=== PATIENT | male | born 1985 ===

== ENCOUNTER 2017-05-12 12:03 | Emergency (ER) | payer OTHER, SELFPAY ==
[2017-05-12 12:06] VITALS: PULSE 81; BMI 23.0
[2017-05-12 12:25] VITALS: BP 115/75; RESP 16; TEMP 98.6; O2SAT 99
--- NOTE | 2017-05-12 12:37 | ED PDOC ---
HPI: Skin/Bite Injury Time Seen by Provider: 05/12/17 12:15 Chief Complaint (Nursing): ENT Problem Chief Complaint (Provider): Rash under nose History Per: Patient History/Exam Limitations: no limitations Onset/Duration Of Symptoms: Days (2) Current Symptoms Are (Timing): Still Present Severity: None Additional Complaint(s): PT states he has had similar in the past. PT states it happens when winter starts and his lips get dry. Pt denies fever/chills. Past Medical History Reviewed: Historical Data, Nursing Documentation, Vital Signs Vital Signs: Last Vital Signs Temp 98.6 F 05/12/17 12:18 Pulse 81 05/12/17 12:18 Resp 16 05/12/17 12:18 BP 115/75 05/12/17 12:18 Pulse Ox 99 05/12/17 12:18 - Medical History PMH: Gastritis, Hiatal Hernia - Surgical History Surgical History: Hernia Repair - Family History Family History: States: No Known Family Hx - Living Arrangements Living Arrangements: With Family - Social History Current smoker - smoking cessation education provided: No Alcohol: Occasional Drugs: Denies - Immunization History Hx Tetanus Toxoid Vaccination: No Hx Influenza Vaccination: No Hx Pneumococcal Vaccination: No - Home Medications Home Medications: Ambulatory Orders Medication Instructions Recorded Famotidine [Pepcid] 20 mg PO BID #28 tab 04/11/16 Bacitracin Ointment [Bacitracin] 30 gm TOP BID #1 tube 05/12/17 Sulfamethoxazole/Trimethoprim 1 each PO BID #20 tablet 05/12/17 [Bactrim 400-80 mg Tablet] - Allergies Allergies/Adverse Reactions: Allergies Allergy/AdvReac Type Severity Reaction Status Date / Time No Known Allergies Allergy Verified 04/11/16 10:52 Review of Systems ROS Statement: Except As Marked, All Systems Reviewed And Found Negative Constitutional: Negative for: Fever, Chills ENT: Positive for: Nose Pain. Negative for: Throat Pain Respiratory: Negative for: Cough Skin: Positive for: Rash Physical Exam - Reviewed Nursing Documentation Reviewed: Yes Vital Signs Reviewed: Yes - Physical Exam Appears: Positive for: Well, Non-toxic, No Acute Distress Head Exam: Positive for: ATRAUMATIC, NORMAL INSPECTION, NORMOCEPHALIC Skin: Positive for: Warm, Rash (Dry erythematous rash under the nose and external area of nostrils. (+) honey colored crusting. ). Negative for: Normal Color Eye Exam: Positive for: Normal appearance ENT: Positive for: Normal ENT Inspection Neck: Positive for: Normal, Painless ROM Cardiovascular/Chest: Positive for: Regular Rate, Rhythm Respiratory: Positive for: CNT, Normal Breath Sounds Gastrointestinal/Abdominal: Positive for: Normal Exam, Bowel Sounds, Soft Back: Positive for: Normal Inspection Extremity: Positive for: Normal ROM Neurologic/Psych: Positive for: Alert, Oriented - ECG O2 Sat by Pulse Oximetry: 99 Medical Decision Making Medical Decision Making: Discussed topical antibiotics for 2-3 days before beginning oral antibiotics. Disposition - Clinical Impression Clinical Impression: Impetigo - Disposition Disposition Time: 12:37 Condition: STABLE Prescriptions: Bacitracin Ointment [Bacitracin] 30 gm TOP BID #1 tube Sulfamethoxazole/Trimethoprim [Bactrim 400-80 mg Tablet] 1 each PO BID #20 tablet Instructions: Impetigo (ED) Forms: [facility] (Kosovan)
== END 2017-05-12 13:10 | disposition home or self-care (01) ==
LOC: H.ER 12:03
DX: L01.00 Impetigo, unspecified (principal)

== ENCOUNTER 2017-06-03 13:23 | Emergency (ER) | payer OTHER ==
[2017-06-03 13:23] VITALS: BMI 23.0
[2017-06-03 14:01] VITALS: BP 121/73; PULSE 94; RESP 16; TEMP 97.6; O2SAT 100
--- NOTE | 2017-06-03 14:10 | ED PDOC ---
HPI: General Adult Time Seen by Provider: 06/03/17 13:45 Chief Complaint (Nursing): Abnormal Skin Integrity Chief Complaint (Provider): Abnormal Skin Integrity History Per: Patient History/Exam Limitations: no limitations Onset/Duration Of Symptoms: Days (x3) Current Symptoms Are (Timing): Still Present Additional Complaint(s): Amadeo Corona is a 31 year old male with no past medical history who presents to the ED complaining of a nasal rash x3 days. Patient was seen in the ED 05/12 for the same rash and was prescribed Bactroban cream and Bactrim. Patient states he completed course of antibiotics and was symptom free on Friday , but symptoms returned on Friday. PMD: Provider TBD Past Medical History Reviewed: Historical Data, Nursing Documentation, Vital Signs Vital Signs: Last Vital Signs Temp 97.6 F 06/03/17 13:40 Pulse 94 H 06/03/17 13:40 Resp 16 06/03/17 13:40 BP 121/73 06/03/17 13:40 Pulse Ox 100 06/03/17 15:40 - Medical History PMH: Gastritis, Hiatal Hernia - Surgical History Surgical History: Hernia Repair Other surgeries: Right foot 2012, nose due to accident - Family History Family History: States: Unknown Family Hx - Social History Ex-Smoker (has not smoked in the last 12 months): Yes Alcohol: Other (Yes) Drugs: Denies - Immunization History Hx Tetanus Toxoid Vaccination: No Hx Influenza Vaccination: No Hx Pneumococcal Vaccination: No - Home Medications Home Medications: Ambulatory Orders Medication Instructions Recorded Famotidine [Pepcid] 20 mg PO BID #28 tab 04/11/16 Bacitracin Ointment [Bacitracin] 30 gm TOP BID #1 tube 05/12/17 Sulfamethoxazole/Trimethoprim 1 each PO BID #20 tablet 05/12/17 [Bactrim 400-80 mg Tablet] Clindamycin Phosphate [Cleocin T] 0.5 gm TP BID #60 gm 06/03/17 Dicloxacillin [Dynapen] 1 tab PO QID #40 cap 06/03/17 - Allergies Allergies/Adverse Reactions: Allergies Allergy/AdvReac Type Severity Reaction Status Date / Time No Known Allergies Allergy Verified 06/03/17 13:40 Review of Systems ROS Statement: Except As Marked, All Systems Reviewed And Found Negative Skin: Positive for: Rash (Nose and upper lip) Physical Exam - Reviewed Nursing Documentation Reviewed: Yes Vital Signs Reviewed: Yes - Physical Exam Appears: Positive for: Well, Non-toxic, No Acute Distress Head Exam: Positive for: ATRAUMATIC, NORMAL INSPECTION, NORMOCEPHALIC Skin: Positive for: Rash (Crusty legions to bilateral nares and upper lip. Mild erythema.) Eye Exam: Positive for: Normal appearance Neurologic/Psych: Positive for: Alert, Oriented - ECG O2 Sat by Pulse Oximetry: 100 (RA) Pulse Ox Interpretation: Normal Medical Decision Making Medical Decision Making: Time: 13:59 Initial Impression: Impetigo Plan: --MRSA Screen --Reevaluation Time: 14:05 Plan: --Upon provider evaluation patient is medically stable, and requires no further treatment in the ED at this time. Patient will be discharged home with Rx for Cleocin T and Dynapen. Counseling was provided and all questions were answered regarding diagnosis and need for follow up with PMD or ED. There is agreement to discharge plan. Return if symptoms persist or worsen. Scribe Attestation: Documented by Robinson Frankel, acting as a scribe for Bob Tobar PA-C Provider Scribe Attestation: All medical record entries made by the Scribe were at my direction and personally dictated by me. I have reviewed the chart and agree that the record accurately reflects my personal performance of the history, physical exam, medical decision making, and the department course for this patient. I have also personally directed, reviewed, and agree with the discharge instructions and disposition. Disposition - Clinical Impression Clinical Impression: Impetigo - Patient ED Disposition Is Patient to be Admitted: No Counseled Patient/Family Regarding: Diagnosis, Need For Followup, Rx Given - Disposition Referrals: [facility] [Outside] Disposition: Routine/Home Disposition Time: 14:05 Condition: FAIR Additional Instructions: RETURN IN 3 DAYS FOR RE-EVALUATION OR F/U WITH YOUR PMD IN 3 DAYS Prescriptions: Clindamycin Phosphate [Cleocin T] 0.5 gm TP BID #60 gm Dicloxacillin [Dynapen] 1 tab PO QID #40 cap Instructions: Impetigo (ED) Forms: [facility] (Swazi)
== END 2017-06-03 15:14 | disposition home or self-care (01) ==
LOC: H.ER 13:23
DX: L01.00 Impetigo, unspecified (principal); Z87.891 Personal history of nicotine dependence

== ENCOUNTER 2017-06-11 17:33 | Emergency (ER) | payer OTHER ==
[2017-06-11 17:33] VITALS: BMI 23.0
[2017-06-11 17:45] VITALS: BP 123/71; PULSE 81; RESP 16; TEMP 98.1; O2SAT 100
--- NOTE | 2017-06-11 17:59 | ED PDOC ---
HPI: Skin/Bite Injury Time Seen by Provider: 06/11/17 17:46 Chief Complaint (Nursing): Abnormal Skin Integrity Chief Complaint (Provider): Abnormal Skin Integrity History Per: Patient History/Exam Limitations: no limitations Onset/Duration Of Symptoms: Days (x1 month) Current Symptoms Are (Timing): Still Present Additional Complaint(s): Amadeo Corona is a 31 year old male who presents to the emergency department with a complaint of right nostril pain associated with rash ongoing for 1 month. Patient was seen in ED and diagnosed with impetigo on 06/03/17 for similar complaints and discharged with Bactrim and bacitracin ointment which did not improve symptoms. PMD: none provided Past Medical History Reviewed: Historical Data, Nursing Documentation, Vital Signs Vital Signs: Last Vital Signs Temp 98.1 F 06/11/17 17:43 Pulse 81 06/11/17 17:43 Resp 16 06/11/17 17:43 BP 123/71 06/11/17 17:43 Pulse Ox 100 06/11/17 18:03 - Medical History PMH: Gastritis, Hiatal Hernia - Surgical History Surgical History: Hernia Repair - Family History Family History: States: Unknown Family Hx - Living Arrangements Living Arrangements: With Family - Social History Current smoker - smoking cessation education provided: No Alcohol: None Drugs: Denies - Immunization History Hx Tetanus Toxoid Vaccination: No Hx Influenza Vaccination: No Hx Pneumococcal Vaccination: No - Home Medications Home Medications: Ambulatory Orders Medication Instructions Recorded Famotidine [Pepcid] 20 mg PO BID #28 tab 04/11/16 Bacitracin Ointment [Bacitracin] 30 gm TOP BID #1 tube 05/12/17 Sulfamethoxazole/Trimethoprim 1 each PO BID #20 tablet 05/12/17 [Bactrim 400-80 mg Tablet] Clindamycin Phosphate [Cleocin T] 0.5 gm TP BID #60 gm 06/03/17 Dicloxacillin [Dynapen] 1 tab PO QID #40 cap 06/03/17 Clindamycin [Cleocin] 300 mg PO BID #14 cap 06/11/17 Mupirocin 2% Cream [Bactroban 30 applic TOP BID #1 tube 06/11/17 Cream] - Allergies Allergies/Adverse Reactions: Allergies Allergy/AdvReac Type Severity Reaction Status Date / Time No Known Allergies Allergy Verified 06/11/17 17:45 Review of Systems ROS Statement: Except As Marked, All Systems Reviewed And Found Negative ENT: Positive for: Nose Pain, Nose Discharge Physical Exam - Reviewed Nursing Documentation Reviewed: Yes Vital Signs Reviewed: Yes - Physical Exam Appears: Positive for: Well, Non-toxic, No Acute Distress Head Exam: Positive for: ATRAUMATIC, NORMAL INSPECTION, NORMOCEPHALIC Skin: Positive for: Warm, Rash (honey colored lesions and scabbing below b/l nares) Eye Exam: Positive for: EOMI, Normal appearance, PERRL ENT: Positive for: Normal ENT Inspection Neck: Positive for: Normal, Painless ROM Cardiovascular/Chest: Positive for: Regular Rate, Rhythm Respiratory: Positive for: CNT, Normal Breath Sounds Gastrointestinal/Abdominal: Positive for: Normal Exam, Bowel Sounds, Soft Back: Positive for: Normal Inspection Extremity: Positive for: Normal ROM Neurologic/Psych: Positive for: Alert, Oriented - ECG O2 Sat by Pulse Oximetry: 100 Disposition - Clinical Impression Clinical Impression: Impetigo - Patient ED Disposition Is Patient to be Admitted: No - Disposition Disposition: Routine/Home Disposition Time: 18:00 Condition: STABLE Prescriptions: Clindamycin [Cleocin] 300 mg PO BID #14 cap Mupirocin 2% Cream [Bactroban Cream] 30 applic TOP BID #1 tube Instructions: Impetigo (ED) Forms: [facility] (Serbian) - POA Present On Arrival: None
== END 2017-06-11 18:14 | disposition home or self-care (01) ==
LOC: H.ER 17:33
DX: L01.00 Impetigo, unspecified (principal)

== ENCOUNTER 2017-12-12 13:59 | Emergency (ER) | payer OTHER, SELFPAY ==
[2017-12-12 14:05] VITALS: BP 130/88; PULSE 99; RESP 16; TEMP 97.5; O2SAT 98; BMI 23.5
--- NOTE | 2017-12-12 15:02 | ED PDOC ---
HPI: Allergic Reaction Time Seen by Provider: 12/12/17 14:59 Chief Complaint (Nursing): Abnormal Skin Integrity Chief Complaint (Provider): Abnormal Skin Integrity History Per: Patient History/Exam Limitations: no limitations Onset/Duration Of Symptoms: Days (x3) Current Symptoms Are (Timing): Still Present Additional Complaint(s): 32 year old male presents to the emergency department complaining of a moderately itchy rash, onset three days ago. He states he noticed a rash to his left arm after gardening outside three days ago, and as of yesterday, noticed the rash had spread to his right arm and neck. Patient denies attempting to use any medications. PMD: none provided Past Medical History Reviewed: Historical Data, Nursing Documentation, Vital Signs Vital Signs: Last Vital Signs Temp 97.5 F L 12/12/17 14:04 Pulse 99 H 12/12/17 14:04 Resp 16 12/12/17 14:04 BP 130/88 12/12/17 14:04 Pulse Ox 98 12/12/17 14:04 - Medical History PMH: Gastritis, Hiatal Hernia - Surgical History Surgical History: Hernia Repair - Family History Family History: States: Unknown Family Hx - Immunization History Hx Tetanus Toxoid Vaccination: No Hx Influenza Vaccination: No Hx Pneumococcal Vaccination: No - Home Medications Home Medications: Ambulatory Orders Medication Instructions Recorded Famotidine [Pepcid] 20 mg PO BID #28 tab 04/11/16 Bacitracin Ointment [Bacitracin] 30 gm TOP BID #1 tube 05/12/17 Sulfamethoxazole/Trimethoprim 1 each PO BID #20 tablet 05/12/17 [Bactrim 400-80 mg Tablet] Clindamycin Phosphate [Cleocin T] 0.5 gm TP BID #60 gm 06/03/17 Dicloxacillin [Dynapen] 1 tab PO QID #40 cap 06/03/17 Clindamycin [Cleocin] 300 mg PO BID #14 cap 06/11/17 Mupirocin 2% Cream [Bactroban 30 applic TOP BID #1 tube 06/11/17 Cream] Polymyxin/Trimethoprim Sulfate 1 drop XX Q6H 10 Days bottle 12/01/17 [Polytrim Ophth Soln] DiphenhydrAMINE [Benadryl] 50 mg PO Q6 PRN #24 cap 12/12/17 Hydrocortisone 0.5% CREAM 0.5 gm TOP BID #1 tube 12/12/17 [Cortizone 0.5% CREAM] - Allergies Allergies/Adverse Reactions: Allergies Allergy/AdvReac Type Severity Reaction Status Date / Time No Known Allergies Allergy Verified 12/01/17 10:56 Review of Systems ROS Statement: Except As Marked, All Systems Reviewed And Found Negative Skin: Positive for: Rash (to bilateral upper extremities and neck; itchy) Physical Exam - Reviewed Nursing Documentation Reviewed: Yes Vital Signs Reviewed: Yes - Physical Exam Appears: Positive for: Non-toxic, No Acute Distress Head Exam: Positive for: ATRAUMATIC, NORMOCEPHALIC Skin: Positive for: Rash (left arm linear array of papular lesions; right arm assorted small lesions; small papular lesions noted at base of neck) Eye Exam: Positive for: Normal appearance Neck: Positive for: Normal, Painless ROM, Supple Cardiovascular/Chest: Positive for: Regular Rate, Rhythm. Negative for: Murmur Respiratory: Positive for: Normal Breath Sounds. Negative for: Accessory Muscle Use, Respiratory Distress Gastrointestinal/Abdominal: Positive for: Normal Exam, Soft. Negative for: Tenderness Back: Positive for: Normal Inspection Extremity: Positive for: Normal ROM Neurologic/Psych: Positive for: Alert, Oriented - ECG O2 Sat by Pulse Oximetry: 98 (RA) Pulse Ox Interpretation: Normal Disposition - Clinical Impression Clinical Impression: Poison rosa dermatitis - Patient ED Disposition Is Patient to be Admitted: No - Disposition Disposition: Routine/Home Disposition Time: 15:10 Condition: FAIR Prescriptions: DiphenhydrAMINE [Benadryl] 50 mg PO Q6 PRN #24 cap PRN Reason: Itching / Pruritus Hydrocortisone 0.5% CREAM [Cortizone 0.5% CREAM] 0.5 gm TOP BID #1 tube Instructions: Poison Rosa Print Language: TAJIK Medical Decision Making Medical Decision Making: Scribe Attestation: Documented by Emilee Jackson, acting as a scribe for Bob Tobar PA-C Provider Scribe Attestation: All medical record entries made by the Scribe were at my direction and personally dictated by me. I have reviewed the chart and agree that the record accurately reflects my personal performance of the history, physical exam, medical decision making, and the department course for this patient. I have also personally directed, reviewed, and agree with the discharge instructions and disposition.
== END 2017-12-12 15:30 | disposition home or self-care (01) ==
LOC: H.ER 13:59
DX: L23.7 Allergic contact dermatitis due to plants, except food (principal)

== ENCOUNTER 2017-12-14 14:54 | Emergency (ER) | payer SELFPAY ==
[2017-12-14 14:54] VITALS: BMI 23.5
[2017-12-14 15:08] VITALS: BP 107/71; PULSE 88; RESP 20; TEMP 97.8; O2SAT 97
--- NOTE | 2017-12-14 15:22 | ED PDOC ---
HPI: Allergic Reaction Time Seen by Provider: 12/14/17 15:10 Chief Complaint (Nursing): Abnormal Skin Integrity Chief Complaint (Provider): poision rosa History Per: Patient History/Exam Limitations: no limitations Onset/Duration Of Symptoms: Days (x5) Current Symptoms Are (Timing): Still Present Additional Complaint(s): 32 year old male presents to the emergency department complaining of worsening poison rosa. Patient states five days ago he was cutting grass and obtained a rash which was later diagnosed in the ED two days ago to be poison rosa. He was discharged home with a cortisone cream and Benadryl, but is back today for worsening symptoms as rash has now spread to both arms, neck and anterior chest. He denies any fever or chills. PMD: [facility] Past Medical History Reviewed: Historical Data, Nursing Documentation, Vital Signs Vital Signs: Last Vital Signs Temp 97.8 F 12/14/17 15:05 Pulse 88 12/14/17 15:05 Resp 20 12/14/17 15:05 BP 107/71 12/14/17 15:05 Pulse Ox 97 12/14/17 15:05 - Medical History PMH: No Chronic Diseases - Surgical History Surgical History: Hernia Repair - Family History Family History: States: No Known Family Hx - Living Arrangements Living Arrangements: With Family - Social History Current smoker - smoking cessation education provided: Yes Alcohol: None Drugs: Cannabis - Home Medications Home Medications: Ambulatory Orders Medication Instructions Recorded Famotidine [Pepcid] 20 mg PO BID #28 tab 04/11/16 Bacitracin Ointment [Bacitracin] 30 gm TOP BID #1 tube 05/12/17 Sulfamethoxazole/Trimethoprim 1 each PO BID #20 tablet 05/12/17 [Bactrim 400-80 mg Tablet] Clindamycin Phosphate [Cleocin T] 0.5 gm TP BID #60 gm 06/03/17 Dicloxacillin [Dynapen] 1 tab PO QID #40 cap 06/03/17 Clindamycin [Cleocin] 300 mg PO BID #14 cap 06/11/17 Mupirocin 2% Cream [Bactroban 30 applic TOP BID #1 tube 06/11/17 Cream] Polymyxin/Trimethoprim Sulfate 1 drop XX Q6H 10 Days bottle 12/01/17 [Polytrim Ophth Soln] DiphenhydrAMINE [Benadryl] 50 mg PO Q6 PRN #24 cap 12/12/17 Hydrocortisone 0.5% CREAM 0.5 gm TOP BID #1 tube 12/12/17 [Cortizone 0.5% CREAM] Diphenhydramine HCl/Zinc Acet 1 gm TP ASDIR PRN #1 packet 12/14/17 [Benadryl Itch Stopping Crm] predniSONE [predniSONE Tab] 10 mg PO ASDIR #43 tab 12/14/17 - Allergies Allergies/Adverse Reactions: Allergies Allergy/AdvReac Type Severity Reaction Status Date / Time No Known Allergies Allergy Verified 12/14/17 15:04 Review of Systems ROS Statement: Except As Marked, All Systems Reviewed And Found Negative Constitutional: Negative for: Fever Skin: Positive for: Rash (poison rosa on bilateral upper extermities and neck) Physical Exam - Reviewed Nursing Documentation Reviewed: Yes Vital Signs Reviewed: Yes - Physical Exam Appears: Positive for: Well, Non-toxic, No Acute Distress Head Exam: Positive for: ATRAUMATIC, NORMAL INSPECTION, NORMOCEPHALIC Skin: Positive for: Rash (scattered raised erythematous lesions and pustules with distribution consistent with poison rosa dermatitis) Eye Exam: Positive for: Normal appearance Cardiovascular/Chest: Positive for: Regular Rate, Rhythm Respiratory: Positive for: Normal Breath Sounds. Negative for: Respiratory Distress Extremity: Positive for: Normal ROM. Negative for: Pedal Edema Neurologic/Psych: Positive for: Alert, Oriented (x3) - ECG O2 Sat by Pulse Oximetry: 97 (RA) Pulse Ox Interpretation: Normal Disposition - Clinical Impression Clinical Impression: Poison rosa dermatitis - Patient ED Disposition Is Patient to be Admitted: No Counseled Patient/Family Regarding: Diagnosis, Need For Followup, Rx Given - Disposition Referrals: [facility] [Outside] Disposition: Routine/Home Disposition Time: 15:30 Condition: STABLE Additional Instructions: TAKE RX MEDS DIRECTED. FOLLOW UP WITH CLINIC IN 2-3 DAYS. Prescriptions: Diphenhydramine HCl/Zinc Acet [Benadryl Itch Stopping Crm] 1 gm TP ASDIR PRN #1 packet PRN Reason: Itching / Pruritus predniSONE [predniSONE Tab] 10 mg PO ASDIR #43 tab Instructions: Poison Rosa Forms: [employer] [facility] (Tristanian) Medical Decision Making Medical Decision Making: Time: 15:18 Initial Impression: 32 year old male with poison rosa dermatitis Initial Plan: --SOLU-Medrol 125mg IM Will d/c with rx prednisone taper and benadryl cream. Patient was referred to clinic for follow up. Scribe Attestation: Documented by Emilee Jackson, acting as a scribe for Brianna Sanchez PA-C. Provider Scribe Attestation: All medical record entries made by the Scribe were at my direction and personally dictated by me. I have reviewed the chart and agree that the record accurately reflects my personal performance of the history, physical exam, medical decision making, and the department course for this patient. I have also personally directed, reviewed, and agree with the discharge instructions and disposition.
== END 2017-12-14 15:40 | disposition home or self-care (01) ==
LOC: H.ER 14:54
DX: L23.7 Allergic contact dermatitis due to plants, except food (principal)
CPT/HCPCS: 96372; 99283; J2930

== ENCOUNTER 2018-05-19 16:57 | Emergency (ER) | payer OTHER, SELFPAY ==
[2018-05-19 16:57] VITALS: BMI 23.5
[2018-05-19 17:09] VITALS: BP 131/79; PULSE 88; RESP 16; TEMP 98.4; O2SAT 97
--- NOTE | 2018-05-19 17:21 | ED PDOC ---
HPI: Skin/Bite Injury Time Seen by Provider: 05/19/18 17:11 Chief Complaint (Nursing): Abnormal Skin Integrity Chief Complaint (Provider): Abnormal Skin Integrity History Per: Patient History/Exam Limitations: no limitations Onset/Duration Of Symptoms: Days (this week) Additional Complaint(s): Patient reports acute onset of rash with no new exposures that began sometime this week. Rash is to upper back and shoulders and patient states he has "white patches" of discoloration. Denies itchiness or pain. Otherwise patient reports (-) throat swelling, (-) tongue / lip swelling, (-) dyspnea, (-) cough, (-) abdominal pain, (-) nausea (-) vomiting, (-) facial swelling. There has been no exposure to known allergens. The patient has no history of allergic reactions. PMD: [facility] Past Medical History Reviewed: Historical Data, Nursing Documentation, Vital Signs Vital Signs: Last Vital Signs Temp 98.4 F 05/19/18 17:08 Pulse 88 05/19/18 17:08 Resp 16 05/19/18 17:08 BP 131/79 05/19/18 17:08 Pulse Ox 97 05/19/18 17:08 - Medical History PMH: Gastritis, Hiatal Hernia - Surgical History Surgical History: Hernia Repair - Family History Family History: States: Unknown Family Hx - Home Medications Home Medications: Ambulatory Orders Medication Instructions Recorded Famotidine [Pepcid] 20 mg PO BID #28 tab 04/11/16 RX: Bacitracin Ointment 30 gm TOP BID #1 tube 05/12/17 [Bacitracin] Sulfamethoxazole/Trimethoprim 1 each PO BID #20 tablet 05/12/17 [Bactrim 400-80 mg Tablet] Clindamycin Phosphate [Cleocin T] 0.5 gm TP BID #60 gm 06/03/17 RX: Dicloxacillin [Dynapen] 1 tab PO QID #40 cap 06/03/17 Mupirocin 2% Cream [Bactroban 30 applic TOP BID #1 tube 06/11/17 Cream] RX: Clindamycin [Cleocin] 300 mg PO BID #14 cap 06/11/17 Polymyxin/Trimethoprim Sulfate 1 drop XX Q6H 10 Days bottle 12/01/17 [Polytrim Ophth Soln] DiphenhydrAMINE [Benadryl] 50 mg PO Q6 PRN #24 cap 12/12/17 RX: Hydrocortisone 0.5% CREAM 0.5 gm TOP BID #1 tube 12/12/17 [Cortizone 0.5% CREAM] Diphenhydramine HCl/Zinc Acet 1 gm TP ASDIR PRN #1 packet 12/14/17 [Benadryl Itch Stopping Crm] RX: predniSONE [predniSONE Tab] 10 mg PO ASDIR #43 tab 12/14/17 RX: Clotrimazole 1% Cream 1 applic TP BID #2 tube 05/19/18 [Lotrimin 1%] - Allergies Allergies/Adverse Reactions: Allergies Allergy/AdvReac Type Severity Reaction Status Date / Time No Known Allergies Allergy Verified 12/14/17 15:04 Review of Systems ROS Statement: Except As Marked, All Systems Reviewed And Found Negative Respiratory: Negative for: Cough, Shortness of Breath Skin: Positive for: Rash (upper back and shoulders ) Physical Exam - Reviewed Nursing Documentation Reviewed: Yes Vital Signs Reviewed: Yes - Physical Exam Comments: GENERAL APPEARANCE: Patient is awake, alert, oriented x 3, in no acute distress. CARDIOVASCULAR: Normal rate and rhythm. NECK: Supple ENT: Mucus membranes moist. (-) facial edema CHEST: (-) rales, (-) wheezing, (-) dyspnea, (-) stridor. Breath sounds equal bilaterally. Respirations even and nonlabored. SKIN: warm, dry; (+)tinea versicolor to upper back and bilateral shoulders/trapezius NEURO: Mental status: Patient is alert, oriented, and with normal strength and tone. Gait: steady. Speech: clear. - ECG O2 Sat by Pulse Oximetry: 97 (RA) Pulse Ox Interpretation: Normal Medical Decision Making Medical Decision Making: Initial Time: 17:10 Initial Impression: tinea versicolor Initial Plan: In light of HPI and PE, patient requires no further treatment in ED. Patient is advised to follow up with clinic for further evaluation and use medications as prescribed. Based on history, exam and diagnostic results, plan will be for outpatient follow up. Patient states he fully agrees with and understands discharge instructions. States that he agrees with the plan and disposition. Verbalized and repeated discharge instructions and plan. I have given the patient opportunity to ask any additional questions. Scribe Attestation: Documented by Robert Nunn, acting as a scribe for Madeline Escobar Provider Scribe Attestation: All medical record entries made by the Scribe were at my direction and personally dictated by me. I have reviewed the chart and agree that the record accurately reflects my personal performance of the history, physical exam, medical decision making, and the department course for this patient. I have also personally directed, reviewed, and agree with the discharge instructions and disposition. Lab / Diagnostic results d/w the patient in great detail. Diagnosis of tinea versicolor d/w the patient. Based on history, exam and diagnostic results, plan will be for outpatient follow up with clinic. Patient instructed to follow-up with pmd / referral provided / the clinic in 1- 2 days without fail. Advised to take medication as prescribed. Return to the em ergency room at any time for any new or worsening symptoms. Patient states he fully agrees with and understands discharge instructions. States that he agrees with the plan and disposition. Verbalized and repeated discharge instructions and plan. I have given the patient opportunity to ask any additional questions. Disposition - Clinical Impression Clinical Impression: Tinea versicolor - Patient ED Disposition Is Patient to be Admitted: No Counseled Patient/Family Regarding: Studies Performed, Diagnosis, Need For Followup, Rx Given - Disposition Referrals: [facility] [Outside] Disposition: Routine/Home Disposition Time: 17:15 Condition: STABLE Additional Instructions: The emergency medical care you received today was directed at your acute symptoms. If you were prescribed any medication, please fill it and take as directed. It may take several days for your symptoms to resolve. Return to the Emergency Department if your symptoms worsen, do not improve, or if you have any other problems. Please contact your doctor in 2 days for re-evaluation and follow up / or call one of the physicians/clinics you have been referred to that are listed on the Patient Visit Information form that is included in your discharge packet. Bring any paperwork you were given at discharge with you along with any medications you are taking to your follow up visit. Our treatment cannot replace ongoing medical care by a primary care provider (PCP) outside of the emergency department. Prescriptions: RX: Clotrimazole 1% Cream [Lotrimin 1%] 1 applic TP BID #2 tube Instructions: Tinea Versicolor Forms: [facility] (Urdu) Print Language: KAZAKH - POA Present On Arrival: None
== END 2018-05-19 17:46 | disposition home or self-care (01) ==
LOC: H.ER 16:57
DX: B36.0 Pityriasis versicolor (principal)